=== PATIENT | female | born 1965 | race Caucasian/White ===

== ENCOUNTER 2018-09-17 19:47 | Emergency (ER) | payer MEDICARE ==
[2018-09-17] MEDS ORDERED: NITROGLYCERIN OINT 1 INCH/GM PACKET TOPICAL STA (20:23)
[2018-09-17] MEDS ORDERED: SODIUM CHLORIDE 0.9% 500 ML 500 ML IV STA (20:23)
[2018-09-17] MEDS ORDERED: SODIUM CHLORIDE 0.9% 500 ML 500 ML IV ONE (20:25)
--- NOTE | 2018-09-17 20:33 | ED ---
General Adult HPI - General Source: patient, RN notes reviewed Mode of arrival: wheelchair Limitations: no limitations <Landry Mejia - Last Filed: 09/17/18 20:25> <Yo Chu - Last Filed: 09/17/18 23:03> - General Chief complaint: Chest Pain Stated complaint: Chest Pain Time Seen by Provider: 09/17/18 19:50 - History of Present Illness Initial comments: This is a 53-year-old female who presents emergency Department complaining of chest pain starting this morning. Patient states for about a week she's had pain in the back between her shoulder blades which she often gets this and didn't think much of it. Patient states this morning she started having chest pain and some shortness of breath and since she's had 2 heart attacks in the past and these were similar symptoms she decided to be seen. Patient also states the pain today radiated to her left arm. Patient states she's not had any stents placed and she states her coronary arteries were clear of any blockage. Patient states 3 times in the last 5 days she has woke up in the middle night to go to the bathroom and passed out. Patient states she has not injured herself but she has passed out 3 times and during the day she has never passed out but felt very dizzy. Patient denies any nausea because she is on medication for that. Patient denies any abdominal pain patient denies any diarrhea. Patient denies any recent fever chills or cough. Patient denies any swelling to the legs or calf tenderness. (Landry Mejia) - Related Data Home Medications Medication Instructions Recorded Confirmed Aspirin EC [Ecotrin Low Dose] 81 mg PO BID 09/17/18 09/17/18 Aspirin EC [Ecotrin] 325 mg PO ONCE PRN 09/17/18 09/17/18 Black Cohosh 80 mg PO HS 09/17/18 09/17/18 Calcium Carbonate [Tums] 1,000 mg PO HS 09/17/18 09/17/18 Carvedilol [Coreg] 12.5 mg PO BID 09/17/18 09/17/18 Cholecalciferol (Vitamin D3) 2,000 unit PO DAILY 09/17/18 09/17/18 [Vitamin D3] Cyanocobalamin (Vitamin B-12) 1,000 mcg PO DAILY 09/17/18 09/17/18 [Vitamin B-12] Cyproheptadine [Cyproheptadine HCl] 8 mg PO BID PRN 09/17/18 09/17/18 Eszopiclone 3 mg PO HS 09/17/18 09/17/18 Lidocaine-Prilocaine Cream [Emla 1 applic TOPICAL DAILY PRN 09/17/18 09/17/18 Cream 2.5%/2.5%] Lisinopril [Zestril] 5 mg PO DAILY 09/17/18 09/17/18 Magnesium Oxide 400 mg PO BID 09/17/18 09/17/18 Melatonin 6 mg PO HS 09/17/18 09/17/18 Meloxicam 15 mg PO DAILY 09/17/18 09/17/18 Memantine HCl [Memantine HCl ER] 28 mg PO HS 09/17/18 09/17/18 Polyethylene Glycol 3350 [Miralax] 17 gm PO DAILY PRN 09/17/18 09/17/18 Promethazine [Phenergan] 25 mg PO DAILY PRN 09/17/18 09/17/18 Ranitidine HCl 300 mg PO BID 09/17/18 09/17/18 Sennosides/Docusate Sodium 2 tab PO BID 09/17/18 09/17/18 [Docusate Sodium-Sennosides Tab] Soy Isofla/Blk Cohosh/Mag Bark 155 mg PO DAILY 09/17/18 09/17/18 [Estroven 155 mg Capsule] clonazePAM 1 mg PO BID 09/17/18 09/17/18 tiZANidine HCL 10 mg PO HS 09/17/18 09/17/18 tiZANidine [Zanaflex] 4 mg PO BID 09/17/18 09/17/18 traMADol HCL [Ultram] 100 mg PO TID PRN 09/17/18 09/17/18 Allergies Allergy/AdvReac Type Severity Reaction Status Date / Time aripiprazole [From Abilify] Allergy Unknown Verified 09/17/18 20:56 calcium [From DHEA] Allergy Unknown Verified 09/17/18 20:56 calcium carbonate [From DHEA] Allergy Unknown Verified 09/17/18 20:56 hydrocodone Allergy Rash/Hives Verified 09/17/18 20:56 nitrofurantoin Allergy Rash/Hives Verified 09/17/18 20:56 [From Macrobid] oxycodone Allergy Rash/Hives Verified 09/17/18 20:56 prasterone (DHEA) [From DHEA] Allergy Unknown Verified 09/17/18 20:56 Sulfa (Sulfonamide Allergy Rash/Hives Verified 09/17/18 20:56 Antibiotics) divalproex sodium AdvReac Unknown Verified 09/17/18 20:56 ergotamine AdvReac Chest Pain Verified 09/17/18 20:56 gabapentin AdvReac Unknown Verified 09/17/18 20:56 hydromorphone AdvReac SHAKING Verified 09/17/18 20:56 metoclopramide AdvReac Unknown Verified 09/17/18 20:56 naratriptan AdvReac Rapid Verified 09/17/18 20:56 Heart Rate phenytoin AdvReac Unknown Verified 09/17/18 20:56 prednisone AdvReac Rapid Verified 09/17/18 20:56 Heart Rate pregabalin [From Lyrica] AdvReac Unknown Verified 09/17/18 20:56 prochlorperazine AdvReac Rapid Verified 09/17/18 20:56 Heart Rate rizatriptan AdvReac Rapid Verified 09/17/18 20:56 Heart Rate sumatriptan AdvReac Rapid Verified 09/17/18 20:56 Heart Rate topiramate AdvReac Rapid Verified 09/17/18 20:56 Heart Rate Review of Systems ROS Other: All systems not noted in ROS Statement are negative. <Landry Mejia - Last Filed: 09/17/18 20:25> ROS Other: All systems not noted in ROS Statement are negative. <Yo Chu - Last Filed: 09/17/18 23:03> ROS Statement: Those systems with pertinent positive or pertinent negative responses have been documented in the HPI. Past Medical History Past Medical History: Hypertension, Myocardial Infarction ([place]) History of Any Multi-Drug Resistant Organisms: None Reported Past Surgical History: Heart Catheterization, Orthopedic Surgery Additional Past Surgical History / Comment(s): R hip replacement, left wrist sx Past Psychological History: Anxiety, Depression Smoking Status: Never smoker Past Alcohol Use History: Occasional Past Drug Use History: None Reported <Landry Mejia - Last Filed: 09/17/18 20:25> General Exam Limitations: no limitations <Landry Mejia - Last Filed: 09/17/18 20:25> Course Vital Signs 09/17/18 09/17/18 09/17/18 19:52 20:28 20:30 Temperature 97.8 F Pulse Rate 60 62 Respiratory 20 21 Rate Blood Pressure 102/61 123/85 O2 Sat by Pulse 99 98 97 Oximetry 09/17/18 09/17/18 09/17/18 20:40 20:50 21:00 Temperature Pulse Rate 61 55 L 55 L Respiratory 20 18 18 Rate Blood Pressure 113/81 113/81 113/81 O2 Sat by Pulse 98 99 98 Oximetry 09/17/18 09/17/18 09/17/18 21:10 21:20 21:30 Temperature Pulse Rate 54 L 56 L 52 L Respiratory 13 20 12 Rate Blood Pressure 108/72 108/72 108/72 O2 Sat by Pulse 97 97 97 Oximetry 09/17/18 21:40 Temperature Pulse Rate Respiratory Rate Blood Pressure 118/77 O2 Sat by Pulse Oximetry Medical Decision Making <Landry Mejia - Last Filed: 09/17/18 20:25> - Lab Data Result diagrams: 09/17/18 20:25 09/17/18 20:25 <Yo Chu - Last Filed: 09/17/18 23:03> - Medical Decision Making EKG shows normal sinus rhythm at 62 bpm MO interval 158 QRS is 96 QT interval 444 QTC is 454 per patient's EKG shows no ST segment elevation or depression or T wave abnormalities are noted. Dr. Chu will be taking over the care of this patient at 9 PM (Landry Mejia) Patient care was sent out to me by previous shift physician. Briefly, patient is 53-year-old female with allegedly psychiatric disease. She claimed to previous physician that she has had multiple heart attacks. Patient reports that she has had 2 heart attacks secondary to psychiatric medications. This allegedly occurred in [place]. Patient has stable hemodynamics. Previous physician entertains the possibility of this possibly being ACS-type chest pain versus acute aortic dissection versus pulmonary emboli.Laboratory was evaluated. Labs were unremarkable. D-dimer was ordered however was elevated. Patient was sent to CT for CT angioma. Patient's scan was negative for PE or dissection. Patient reevaluated and reports being asymptomatic at this time. Patient's symptoms are very atypical for acute coronary syndrome. Patient appears well at this time. EKG was reviewed showing no acute processes. Patient's symptoms are atypical. Should decision-making was performed. Patient agreeable for outpatient follow-up of symptoms. This point there is no high-risk features to suggest serious cardiopulmonary disease. Patient is agreeable to this plan. I believe this is reasonable. Patient told to return to the emergency department with return of symptoms. (Yo Chu) - Lab Data Lab Results 09/17/18 09/17/18 09/17/18 Range/Units 20:25 20:25 20:25 WBC 6.4 (3.8-10.6) k/uL RBC 3.59 L (3.80-5.40) m/uL Hgb 10.6 L (11.4-16.0) gm/dL Hct 32.5 L (34.0-46.0) % MCV 90.5 (80.0-100.0) fL MCH 29.6 (25.0-35.0) pg MCHC 32.7 (31.0-37.0) g/dL RDW 15.2 (11.5-15.5) % Plt Count 301 (150-450) k/uL Neutrophils % 51 % Lymphocytes % 37 % Monocytes % 7 % Eosinophils % 3 % Basophils % 0 % Neutrophils # 3.3 (1.3-7.7) k/uL Lymphocytes # 2.4 (1.0-4.8) k/uL Monocytes # 0.4 (0-1.0) k/uL Eosinophils # 0.2 (0-0.7) k/uL Basophils # 0.0 (0-0.2) k/uL PT 10.5 (9.0-12.0) sec INR 1.0 (<1.2) APTT 24.0 (22.0-30.0) sec D-Dimer 2.65 H (<0.60) mg/L FEU Sodium 133 L (137-145) mmol/L Potassium 4.4 (3.5-5.1) mmol/L Chloride 100 (98-107) mmol/L Carbon Dioxide 25 (22-30) mmol/L Anion Gap 8 mmol/L BUN 13 (7-17) mg/dL Creatinine 1.06 H (0.52-1.04) mg/dL Est GFR (CKD-EPI)AfAm 70 (>60 ml/min/1.73 sqM) Est GFR (CKD-EPI)NonAf 60 (>60 ml/min/1.73 sqM) Glucose 98 (74-99) mg/dL Calcium 9.7 (8.4-10.2) mg/dL Magnesium 1.9 (1.6-2.3) mg/dL Total Bilirubin 0.4 (0.2-1.3) mg/dL AST 26 (14-36) U/L ALT 37 (9-52) U/L Alkaline Phosphatase 110 (38-126) U/L Troponin I (0.000-0.034) ng/mL NT-Pro-B Natriuret Pep pg/mL Total Protein 7.4 (6.3-8.2) g/dL Albumin 4.3 (3.5-5.0) g/dL 09/17/18 09/17/18 Range/Units 20:25 20:25 WBC (3.8-10.6) k/uL RBC (3.80-5.40) m/uL Hgb (11.4-16.0) gm/dL Hct (34.0-46.0) % MCV (80.0-100.0) fL MCH (25.0-35.0) pg MCHC (31.0-37.0) g/dL RDW (11.5-15.5) % Plt Count (150-450) k/uL Neutrophils % % Lymphocytes % % Monocytes % % Eosinophils % % Basophils % % Neutrophils # (1.3-7.7) k/uL Lymphocytes # (1.0-4.8) k/uL Monocytes # (0-1.0) k/uL Eosinophils # (0-0.7) k/uL Basophils # (0-0.2) k/uL PT (9.0-12.0) sec INR (<1.2) APTT (22.0-30.0) sec D-Dimer (<0.60) mg/L FEU Sodium (137-145) mmol/L Potassium (3.5-5.1) mmol/L Chloride (98-107) mmol/L Carbon Dioxide (22-30) mmol/L Anion Gap mmol/L BUN (7-17) mg/dL Creatinine (0.52-1.04) mg/dL Est GFR (CKD-EPI)AfAm (>60 ml/min/1.73 sqM) Est GFR (CKD-EPI)NonAf (>60 ml/min/1.73 sqM) Glucose (74-99) mg/dL Calcium (8.4-10.2) mg/dL Magnesium (1.6-2.3) mg/dL Total Bilirubin (0.2-1.3) mg/dL AST (14-36) U/L ALT (9-52) U/L Alkaline Phosphatase (38-126) U/L Troponin I <0.012 (0.000-0.034) ng/mL NT-Pro-B Natriuret Pep 163 pg/mL Total Protein (6.3-8.2) g/dL Albumin (3.5-5.0) g/dL Disposition <Landry Mejia - Last Filed: 09/17/18 20:25> Is patient prescribed a controlled substance at d/c from ED?: No Time of Disposition: 23:03 <Yo Chu - Last Filed: 09/17/18 23:03> Clinical Impression: Chest pain Disposition: HOME SELF-CARE Condition: Good Instructions (If sedation given, give patient instructions): Chest Pain (ED) Referrals: Nonstaff,Physician [Primary Care Provider] - 1-2 days
[2018-09-17 20:42] LABS: Basophils % (A) 0 %; Eosinophils # (A) 0.2 k/uL (0-0.7); Eosinophils % (A) 3 %; HCT 32.5 % (34.0-46.0); HGB 10.6 gm/dL (11.4-16.0); Lymphocytes # (A) 2.4 k/uL (1.0-4.8); Lymphocytes % (A) 37 %; MCH 29.6 pg (25.0-35.0); MCHC 32.7 g/dL (31.0-37.0); MCV 90.5 fL (80.0-100.0); Mean Platelet Volume 6.5; Monocytes # (A) 0.4 k/uL (0-1.0); Monocytes % (A) 7 %; Neutrophils # (A) 3.3 k/uL (1.3-7.7); Neutrophils % (A) 51 %; Platelet Count 301 k/uL (150-450); RBC 3.59 m/uL (3.80-5.40); RDW 15.2 % (11.5-15.5); WBC 6.4 k/uL (3.8-10.6)
--- NOTE | 2018-09-17 20:44 | XR ---
EXAMINATION: XR chest 2V DATE AND TIME: 09/17/2018 8:36 PM CLINICAL INDICATION: [facility]; Chest Pain TECHNIQUE: Departmental protocol COMPARISON: None FINDINGS: The lungs are clear. The pleural spaces are negative. The cardiac silhouette is not enlarged. The remainder of the mediastinal silhouette is unremarkable. The skeletal structures and soft tissues are negative for acute findings. IMPRESSION: NO ACUTE PROCESS.
[2018-09-17 20:51] LABS: Albumin 4.3 g/dL (3.5-5.0); Calcium 9.7 mg/dL (8.4-10.2); Magnesium 1.9 mg/dL (1.6-2.3); Potassium 4.4 mmol/L (3.5-5.1); Total Bilirubin 0.4 mg/dL (0.2-1.3); Total Protein 7.4 g/dL (6.3-8.2)
[2018-09-17 20:57] LABS: Prothrombin Time 10.5 sec (9.0-12.0)
[2018-09-17 21:00] LABS: D-Dimer 2.65 mg/L FEU (<0.60)
--- NOTE | 2018-09-17 22:51 | CT ---
EXAM: CT Angiography Chest With Intravenous Contrast CLINICAL HISTORY: Pain TECHNIQUE: Axial computed tomographic angiography images of the chest with intravenous contrast using pulmonary embolism protocol. CTDI is 10.6 mGy and DLP is 254.7 mGy-cm. This CT exam was performed using one or more of the following dose reduction techniques: automated exposure control, adjustment of the mA and/or kV according to patient size, and/or use of iterative reconstruction technique. MIP reconstructed images were created and reviewed. Coronal and sagittal reformatted images were created and reviewed. COMPARISON: No relevant prior studies available. FINDINGS: Pulmonary arteries: Unremarkable. No pulmonary embolism. Aorta: No acute findings. No thoracic aortic aneurysm. Lungs: Unremarkable. No mass. Minimal dependent atelectasis the lung bases Pleural space: Unremarkable. No significant effusion. No pneumothorax. Heart: Unremarkable. No cardiomegaly. No significant pericardial effusion. No evidence of RV dysfunction. Bones/joints: No acute fracture. No dislocation. Soft tissues: Unremarkable. Lymph nodes: Unremarkable. No enlarged lymph nodes. IMPRESSION: Normal chest CTA. No pulmonary embolism.. No evidence for abnormality aorta. No infiltrates or effusions
[2018-09-17 23:12] VITALS: BP 110/66; PULSE 57; RESP 18; TEMP 98.4
== END 2018-09-17 23:11 | disposition home or self-care (01) ==
LOC: EC 19:47
DX: R07.9 Chest pain, unspecified (principal); R06.02 Shortness of breath; I25.2 Old myocardial infarction; I10 Essential (primary) hypertension; F41.9 Anxiety disorder, unspecified; F32.9 Major depressive disorder, single episode, unspecified; Z79.82 Long term (current) use of aspirin; Z79.1 Long term (current) use of non-steroidal anti-inflammatories (NSAID); Z79.899 Other long term (current) drug therapy; Z88.8 Allergy status to other drugs, medicaments and biological substances; Z88.5 Allergy status to narcotic agent; Z88.1 Allergy status to other antibiotic agents; Z88.2 Allergy status to sulfonamides; Z95.5 Presence of coronary angioplasty implant and graft
CPT/HCPCS: 36415; 93005; 85379; 83880; 80053; 83735; 84484; 85025; 85610; 85730; 71046; 71275; 99285; 96360; 96361; Q9967